=== PATIENT | female | born 1965 | race Hispanic/Latino ===

== ENCOUNTER 2022-07-10 14:30 | Outpatient (RCR) | payer OTHER, SELFPAY ==
--- NOTE | 2022-04-12 20:00 | PT.OIE ---
Current Diagnoses Other muscle spasm (04/12/22) Stress incontinence (female) (male) (04/12/22) Past Medical History (Last Reviewed 12/12/21 @ 08:32 by Joaquina Payton MD) Vaginal delivery Visit Care Team Role Provider Type Champ Ni MD Attending Provider Physician Family Provider Primary Care Provider Referring Provider Specialty: TAKE OUT WAITER/WAITRESS Address: [address] [place] [address], [address], [place], [address] Email: [email or web address] Physical Therapy Initial Evaluation PT-OP-A Visit Information Start: 04/03/22 15:03 Freq: Status: Active Protocol: Document 04/12/22 13:00 AMB (Rec: 04/12/22 13:17 AMB [id number]) Out-Patient Physical Therapy Visit Information Visit Information Visit Type Initial Evaluation Visit Start Time 13:00 Visit Stop Time 13:45 Total Visit Minutes 45 Visit Number 1 PT-OP-B Current Condition Start: 04/03/22 15:03 Freq: Status: Active Protocol: Document 04/12/22 13:00 AMB (Rec: 04/12/22 13:17 AMB [id number]) Current Condition History of Current Condition Onset Date 1 year Current Complaints pelvic pain, CINDI History of Current Condition Weak bladder if running and bladder is full then could have a pretty large leak. Painful intercourse- stinging for past 6 months. Running, hiking, biking seem to increase pain. Is using estradiol cream which is helping. 2 vaginal deliveries denies instrument assistance, noticing leaking afterward Post menopausal 5 years, leaking for quite a few years, pain has been about a year. Treatment Goals Patient/Caregiver Goals Stop pain/leaking Prior Functional Status Baseline Function- ADL's Independent Baseline Function- Mobility Independent Current Functional Impairments (Reported) Functional Limitations- ADL's leaking with running, pain with intercourse PT-OP-C Subjective Start: 04/03/22 15:03 Freq: Status: Active Protocol: Document 04/12/22 13:00 AMB (Rec: 04/12/22 15:55 AMB [id number]) Patient Questionnaires Pelvic Pain and Urgency/Frequency Patient Symptom Scale Pelvic Pain Score 11 PT-OP-I Pelvic Floor Start: 04/03/22 15:03 Freq: Status: Active Protocol: Document 04/12/22 13:00 AMB (Rec: 04/12/22 15:55 AMB [id number]) Pelvic Floor Assessment Urine Pelvic Floor Surgery No Urinary Symptoms Prolapse,Pain Leakage Size Medium Leakage Cause Cough,Exercise Other Leakage Causes laughing Voiding Frequency 5x/day Nocturia 1 Urine Pad Type Panty Liner Bowel Other Bowel Symptoms previous history of constipation Prolapse Cystocele Grade 2 Contraction Ability Voluntary Contraction Weak Voluntary Relaxation Weak Manual Muscle Testing Left 1 Manual Muscle Testing Right 1 Manual Muscle Testing Anterior 1 Manual Muscle Testing Posterior 2 Muscle Endurance (Seconds) 1 Number of Quick Contractions In 10 2 Seconds Comments Pelvic Floor Comments Mild tenderness at levator bilaterally PT-OP-T Assessment and Plan Start: 04/03/22 15:03 Freq: Status: Active Protocol: Document 04/12/22 13:00 AMB (Rec: 04/13/22 10:30 AMB [id number]) Physical Therapy Assessment Rehab Potential Rehabilitation Potential Good Evaluation Complexity Number of Personal Factors/Comorbidities 0 Number of Body Systems Impaired 1-2 Clinical Presentation at Evaluation Stable Impairments Impairments Pain,Strength Goals 2 Impairment Pain Short Term Goal (STG) Linda will be independent with using a pelvic wand to reduce pelvic floor tension. STG Duration 4 weeks Internal Carver Goal (LTG) Linda will engage in the intercourse of her choice without an increase in pain. LTG Duration 8 weeks One Impairment Continence Short Term Goal (STG) Linda will engage her pelvic floor muscles for 10 seconds to show improved strength. STG Duration 4 weeks Internal Carver Goal (LTG) Linda will run for 1 mile without urinary leakage. LTG Duration 8 weeks Assessment Summary Assessment Linda attends physical therapy with a burning sensation with intercourse for the past 6 months and CINDI with running/ extended laughing for multiple years. She presented with tenderness and spasm at bilateral levator ani, and signficant weakness of the entire pelvic floor. She will benefit from first stretching and manual therapy of the pelvic floor, and then progressive strengthening. Physical Therapy Plan Frequency and Duration Frequency of Treatment 1x/Week Duration of Treatment 10 weeks Plan of Care Start Date 04/12/22 Plan of Care End Date 06/21/22 Therapeutic Interventions Therapeutic Interventions Home Exercise Program,Manual Therapy,Neuromuscular Re- education,Self-Care/Home Management,Soft Tissue Mobilization,Therapeutic Activities,Therapeutic Exercises Modalities Biofeedback,Cold Pack/Ice Massage,Electric Stimulation, Hot Packs Next Visit Focus/Plan Next Note Type Treatment Note Next Visit Plan biofeedback, stretching for pelvic floor, progress HEP for strengthening as tolerated
--- NOTE | 2022-04-12 20:02 | PT.OPPOC ---
Physical, Occupational & Speech Therapy At Current Diagnoses Other muscle spasm (04/12/22) Stress incontinence (female) (male) (04/12/22) Visit Care Team Role Provider Type Champ Ni MD Attending Provider Physician Family Provider Primary Care Provider Referring Provider Specialty: CAKE KNOCKER Address: [address] [place] [address], [address], [place], [address] Email: [email or web address] Plan Of Care PT-OP-T Assessment and Plan Start: 04/03/22 15:03 Freq: Status: Active Protocol: Document 04/12/22 13:00 AMB (Rec: 04/13/22 10:30 AMB [id number]) Physical Therapy Assessment Rehab Potential Rehabilitation Potential Good Evaluation Complexity Number of Personal Factors/Comorbidities 0 Number of Body Systems Impaired 1-2 Clinical Presentation at Evaluation Stable Impairments Impairments Pain,Strength Goals 2 Impairment Pain Short Term Goal (STG) Linda will be independent with using a pelvic wand to reduce pelvic floor tension. STG Duration 4 weeks Yarn Man Goal (LTG) Linda will engage in the intercourse of her choice without an increase in pain. LTG Duration 8 weeks One Impairment Continence Short Term Goal (STG) Linda will engage her pelvic floor muscles for 10 seconds to show improved strength. STG Duration 4 weeks Snf Goal (LTG) Linda will run for 1 mile without urinary leakage. LTG Duration 8 weeks Assessment Summary Assessment Linda attends physical therapy with a burning sensation with intercourse for the past 6 months and CINDI with running/ extended laughing for multiple years. She presented with tenderness and spasm at bilateral levator ani, and significant weakness of the entire pelvic floor. She will benefit from first stretching and manual therapy of the pelvic floor, and then progressive strengthening. Physical Therapy Plan Frequency and Duration Frequency of Treatment 1x/Week Duration of Treatment 10 weeks Plan of Care Start Date 04/12/22 Plan of Care End Date 06/21/22 Therapeutic Interventions Therapeutic Interventions Home Exercise Program,Manual Therapy,Neuromuscular Re- education,Self-Care/Home Management,Soft Tissue Mobilization,Therapeutic Activities,Therapeutic Exercises Modalities Biofeedback,Cold Pack/Ice Massage,Electric Stimulation, Hot Packs Next Visit Focus/Plan Next Note Type Treatment Note Next Visit Plan biofeedback, stretching for pelvic floor, progress HEP for strengthening as tolerated Plan of Care Dates Plan of Care Start Date 04/12/22 Plan of Care End Date 06/21/22 Electronically Signed by: May Gutiérrez, PT 04/17/222001 If you are in agreement with this Plan of Care, please return a signed and dated copy. I have reviewed this Plan of Care and certify that the skilled therapy services above are required to meet the patient?s needs. Physician Signature Date Printed Name and Credentials Clinical Instructor Signature Printed Name and Credentials
--- NOTE | 2022-04-18 20:47 | PT.OTN ---
Current Diagnoses Other muscle spasm (04/18/22) Stress incontinence (female) (male) (04/18/22) Physical Therapy Treatment Note PT-OP-A Visit Information Start: 04/03/22 15:03 Freq: Status: Active Protocol: Document 04/18/22 14:38 AMB (Rec: 04/18/22 15:07 AMB [id number]) Out-Patient Physical Therapy Visit Information Visit Information Visit Type Treatment Note Visit Start Time 14:30 Visit Stop Time 15:15 Total Visit Minutes 45 Visit Number 2 PT-OP-B Current Condition Start: 04/03/22 15:03 Freq: Status: Active Protocol: Document 04/12/22 13:00 AMB (Rec: 04/12/22 13:17 AMB [id number]) Current Condition History of Current Condition Onset Date 1 year Current Complaints pelvic pain, CINDI History of Current Condition Weak bladder if running and bladder is full then could have a pretty large leak. Painful intercourse- stinging for past 6 months. Running, hiking, biking seem to increase pain. Is using estradiol cream which is helping. 2 vaginal deliveries denies instrument assistance, noticing leaking afterward Post menopausal 5 years, leaking for quite a few years, pain has been about a year. Treatment Goals Patient/Caregiver Goals Stop pain/leaking Prior Functional Status Baseline Function- ADL's Independent Baseline Function- Mobility Independent Current Functional Impairments (Reported) Functional Limitations- ADL's leaking with running, pain with intercourse PT-OP-C Subjective Start: 04/03/22 15:03 Freq: Status: Active Protocol: Document 04/18/22 14:38 AMB (Rec: 04/18/22 15:07 AMB [id number]) OP-PT Subjective Patient Comments Patient Comments soreness and stinging was gone most recently, and now coming back a little. Did go on hike and a kayak on Saturday, but wasn't really as sore. PT-OP-I Pelvic Floor Start: 04/03/22 15:03 Freq: Status: Active Protocol: Document 04/12/22 13:00 AMB (Rec: 04/12/22 15:55 AMB [id number]) Pelvic Floor Assessment Urine Pelvic Floor Surgery No Urinary Symptoms Prolapse,Pain Leakage Size Medium Leakage Cause Cough,Exercise Other Leakage Causes laughing Voiding Frequency 5x/day Nocturia 1 Urine Pad Type Panty Liner Bowel Other Bowel Symptoms previous history of constipation Prolapse Cystocele Grade 2 Contraction Ability Voluntary Contraction Weak Voluntary Relaxation Weak Manual Muscle Testing Left 1 Manual Muscle Testing Right 1 Manual Muscle Testing Anterior 1 Manual Muscle Testing Posterior 2 Muscle Endurance (Seconds) 1 Number of Quick Contractions In 10 2 Seconds Comments Pelvic Floor Comments Mild tenderness at levator bilaterally PT-OP-Q Treatments Start: 04/03/22 15:03 Freq: Status: Active Protocol: Document 04/18/22 14:38 AMB (Rec: 04/18/22 15:07 AMB [id number]) Therapeutic Exercises Supine Exercises piriformis stretch Reps/Minutes 30x2 DKTC Reps/Minutes 30x2 Neuro Re-Education Treatment Other Activities sEMG Reps/Duration 30 min Comments Beginning 2.5 baseline, but then after contracitng had more difficulty getting back down to baseline, more in 3-4 range. Maximum variable quick flicks in the 5 range but then was able to get resting down close to 0. PT-OP-T Assessment and Plan Start: 04/03/22 15:03 Freq: Status: Active Protocol: Document 04/18/22 14:38 AMB (Rec: 04/18/22 15:07 AMB [id number]) Physical Therapy Assessment Goals 2 Impairment Pain Short Term Goal (STG) Linda will be independent with using a pelvic wand to reduce pelvic floor tension. STG Duration 4 weeks Jail Goal (LTG) Linda will engage in the intercourse of her choice without an increase in pain. LTG Duration 8 weeks One Impairment Continence Short Term Goal (STG) Linda will engage her pelvic floor muscles for 10 seconds to show improved strength. STG Duration 4 weeks Mold Filler And Drainer Goal (LTG) Linda will run for 1 mile without urinary leakage. LTG Duration 8 weeks Assessment Summary Assessment Linda had a difficult time with consistency with sEMG, she did show fatigue towards the end. In the middle, she had a difficult time relaxing back down to her baseline, but improved with this with repetition. Physical Therapy Plan Next Visit Focus/Plan Next Note Type Treatment Note Next Visit Plan biofeedback, stretching for pelvic floor, progress HEP for strengthening as tolerated
--- NOTE | 2022-04-25 14:48 | PT.OTN ---
Current Diagnoses Other muscle spasm (04/25/22) Stress incontinence (female) (male) (04/25/22) Physical Therapy Treatment Note PT-OP-A Visit Information Start: 04/03/22 15:03 Freq: Status: Active Protocol: Document 04/25/22 13:49 AMB (Rec: 04/25/22 14:43 AMB [id number]) Out-Patient Physical Therapy Visit Information Visit Information Visit Type Treatment Note Visit Start Time 13:45 Visit Stop Time 14:30 Total Visit Minutes 45 Visit Number 3 PT-OP-B Current Condition Start: 04/03/22 15:03 Freq: Status: Active Protocol: Document 04/12/22 13:00 AMB (Rec: 04/12/22 13:17 AMB [id number]) Current Condition History of Current Condition Onset Date 1 year Current Complaints pelvic pain, CINDI History of Current Condition Weak bladder if running and bladder is full then could have a pretty large leak. Painful intercourse- stinging for past 6 months. Running, hiking, biking seem to increase pain. Is using estradiol cream which is helping. 2 vaginal deliveries denies instrument assistance, noticing leaking afterward Post menopausal 5 years, leaking for quite a few years, pain has been about a year. Treatment Goals Patient/Caregiver Goals Stop pain/leaking Prior Functional Status Baseline Function- ADL's Independent Baseline Function- Mobility Independent Current Functional Impairments (Reported) Functional Limitations- ADL's leaking with running, pain with intercourse PT-OP-C Subjective Start: 04/03/22 15:03 Freq: Status: Active Protocol: Document 04/25/22 13:49 AMB (Rec: 04/25/22 14:43 AMB [id number]) OP-PT Subjective Patient Comments Patient Comments Challenging to get exercises going. Did go on a bike ride 12 miles no increased soreness with biking. PT-OP-I Pelvic Floor Start: 04/03/22 15:03 Freq: Status: Active Protocol: Document 04/12/22 13:00 AMB (Rec: 04/12/22 15:55 AMB [id number]) Pelvic Floor Assessment Urine Pelvic Floor Surgery No Urinary Symptoms Prolapse,Pain Leakage Size Medium Leakage Cause Cough,Exercise Other Leakage Causes laughing Voiding Frequency 5x/day Nocturia 1 Urine Pad Type Panty Liner Bowel Other Bowel Symptoms previous history of constipation Prolapse Cystocele Grade 2 Contraction Ability Voluntary Contraction Weak Voluntary Relaxation Weak Manual Muscle Testing Left 1 Manual Muscle Testing Right 1 Manual Muscle Testing Anterior 1 Manual Muscle Testing Posterior 2 Muscle Endurance (Seconds) 1 Number of Quick Contractions In 10 2 Seconds Comments Pelvic Floor Comments Mild tenderness at levator bilaterally PT-OP-Q Treatments Start: 04/03/22 15:03 Freq: Status: Active Protocol: Document 04/25/22 13:49 AMB (Rec: 04/25/22 14:43 AMB [id number]) Therapeutic Exercises Supine Exercises piriformis stretch Reps/Minutes 30x2 Manual Therapy Treatment Other Other Manual Treatments Instruction in dilator usage mostly focusing on posterior musculature. PT-OP-T Assessment and Plan Start: 04/03/22 15:03 Freq: Status: Active Protocol: Document 04/25/22 13:49 AMB (Rec: 04/25/22 14:43 AMB [id number]) Physical Therapy Assessment Goals 2 Impairment Pain Short Term Goal (STG) Linda will be independent with using a pelvic wand to reduce pelvic floor tension. STG Duration 4 weeks Retirement Goal (LTG) Linda will engage in the intercourse of her choice without an increase in pain. LTG Duration 8 weeks One Impairment Continence Short Term Goal (STG) Linda will engage her pelvic floor muscles for 10 seconds to show improved strength. STG Duration 4 weeks Program Director Air Talent Goal (LTG) Linda will run for 1 mile without urinary leakage. LTG Duration 8 weeks Assessment Summary Assessment In seated does have some sorness and stinging. Is not doing estradiol 2x/week, more a couple times a month. Tolerated dilator did have some soreness and stretching but not severe, vended small dilator. Physical Therapy Plan Next Visit Focus/Plan Next Note Type Treatment Note Next Visit Plan biofeedback, stretching for pelvic floor, progress HEP for strengthening as tolerated
--- NOTE | 2022-05-04 15:18 | PT.OTN ---
Current Diagnoses Other muscle spasm (05/08/22) Stress incontinence (female) (male) (05/08/22) Physical Therapy Treatment Note PT-OP-A Visit Information Start: 04/03/22 15:03 Freq: Status: Active Protocol: Document 05/04/22 14:39 AMB (Rec: 05/04/22 15:26 AMB [id number]) Out-Patient Physical Therapy Visit Information Visit Information Visit Type Treatment Note Visit Start Time 14:30 Visit Stop Time 15:15 Total Visit Minutes 45 Visit Number 4 PT-OP-B Current Condition Start: 04/03/22 15:03 Freq: Status: Active Protocol: Document 04/12/22 13:00 AMB (Rec: 04/12/22 13:17 AMB [id number]) Current Condition History of Current Condition Onset Date 1 year Current Complaints pelvic pain, CINDI History of Current Condition Weak bladder if running and bladder is full then could have a pretty large leak. Painful intercourse- stinging for past 6 months. Running, hiking, biking seem to increase pain. Is using estradiol cream which is helping. 2 vaginal deliveries denies instrument assistance, noticing leaking afterward Post menopausal 5 years, leaking for quite a few years, pain has been about a year. Treatment Goals Patient/Caregiver Goals Stop pain/leaking Prior Functional Status Baseline Function- ADL's Independent Baseline Function- Mobility Independent Current Functional Impairments (Reported) Functional Limitations- ADL's leaking with running, pain with intercourse PT-OP-C Subjective Start: 04/03/22 15:03 Freq: Status: Active Protocol: Document 05/04/22 14:39 AMB (Rec: 05/04/22 15:26 AMB [id number]) OP-PT Subjective Patient Comments Patient Comments Hasn't really tried the dilator much yet. Patient Reported Progress Same PT-OP-I Pelvic Floor Start: 04/03/22 15:03 Freq: Status: Active Protocol: Document 04/12/22 13:00 AMB (Rec: 04/12/22 15:55 AMB [id number]) Pelvic Floor Assessment Urine Pelvic Floor Surgery No Urinary Symptoms Prolapse,Pain Leakage Size Medium Leakage Cause Cough,Exercise Other Leakage Causes laughing Voiding Frequency 5x/day Nocturia 1 Urine Pad Type Panty Liner Bowel Other Bowel Symptoms previous history of constipation Prolapse Cystocele Grade 2 Contraction Ability Voluntary Contraction Weak Voluntary Relaxation Weak Manual Muscle Testing Left 1 Manual Muscle Testing Right 1 Manual Muscle Testing Anterior 1 Manual Muscle Testing Posterior 2 Muscle Endurance (Seconds) 1 Number of Quick Contractions In 10 2 Seconds Comments Pelvic Floor Comments Mild tenderness at levator bilaterally PT-OP-Q Treatments Start: 04/03/22 15:03 Freq: Status: Active Protocol: Document 05/04/22 15:16 AMB (Rec: 05/08/22 15:18 AMB [id number]) Manual Therapy Treatment Soft Tissue Mobilization 1 Body Location internal pelvic floor Mobilization Type Myofascial Release,Sustained Pressure,Trigger Point Release Comments bilateral levator PT-OP-T Assessment and Plan Start: 04/03/22 15:03 Freq: Status: Active Protocol: Document 05/04/22 14:39 AMB (Rec: 05/04/22 15:26 AMB [id number]) Physical Therapy Assessment Goals 2 Impairment Pain Short Term Goal (STG) Linda will be independent with using a pelvic wand to reduce pelvic floor tension. STG Duration 4 weeks Human Resources Executive Goal (LTG) Linda will engage in the intercourse of her choice without an increase in pain. LTG Duration 8 weeks One Impairment Continence Short Term Goal (STG) Linda will engage her pelvic floor muscles for 10 seconds to show improved strength. STG Duration 4 weeks Human Resources Executive Goal (LTG) Linda will run for 1 mile without urinary leakage. LTG Duration 8 weeks Assessment Summary Assessment Not using lubricant with intercourse, but thinks dryness is better with estradiol. Would encourage continued stretching, dilator usage, was tender throughout manual therapy. Physical Therapy Plan Frequency and Duration Frequency of Treatment 1x/Week Duration of Treatment 10 weeks Plan of Care Start Date 04/12/22 Plan of Care End Date 06/21/22 Next Visit Focus/Plan Next Note Type Treatment Note Next Visit Plan biofeedback, stretching for pelvic floor, progress HEP for strengthening as tolerated
--- NOTE | 2022-05-08 15:26 | PT.OTN ---
Current Diagnoses Other muscle spasm (05/08/22) Stress incontinence (female) (male) (05/08/22) Physical Therapy Treatment Note PT-OP-A Visit Information Start: 04/03/22 15:03 Freq: Status: Active Protocol: Document 05/08/22 14:30 AMB (Rec: 05/08/22 15:26 AMB [id number]) Out-Patient Physical Therapy Visit Information Visit Information Visit Type Treatment Note Visit Start Time 14:30 Visit Stop Time 15:15 Total Visit Minutes 45 Visit Number 5 PT-OP-B Current Condition Start: 04/03/22 15:03 Freq: Status: Active Protocol: Document 04/12/22 13:00 AMB (Rec: 04/12/22 13:17 AMB [id number]) Current Condition History of Current Condition Onset Date 1 year Current Complaints pelvic pain, CINDI History of Current Condition Weak bladder if running and bladder is full then could have a pretty large leak. Painful intercourse- stinging for past 6 months. Running, hiking, biking seem to increase pain. Is using estradiol cream which is helping. 2 vaginal deliveries denies instrument assistance, noticing leaking afterward Post menopausal 5 years, leaking for quite a few years, pain has been about a year. Treatment Goals Patient/Caregiver Goals Stop pain/leaking Prior Functional Status Baseline Function- ADL's Independent Baseline Function- Mobility Independent Current Functional Impairments (Reported) Functional Limitations- ADL's leaking with running, pain with intercourse PT-OP-C Subjective Start: 04/03/22 15:03 Freq: Status: Active Protocol: Document 05/08/22 14:30 AMB (Rec: 05/08/22 15:26 AMB [id number]) OP-PT Subjective Patient Comments Patient Comments Pt didn't do much exercise this weekend, was busy biking in [place], feels like stinging is marginally better. PT-OP-I Pelvic Floor Start: 04/03/22 15:03 Freq: Status: Active Protocol: Document 04/12/22 13:00 AMB (Rec: 04/12/22 15:55 AMB [id number]) Pelvic Floor Assessment Urine Pelvic Floor Surgery No Urinary Symptoms Prolapse,Pain Leakage Size Medium Leakage Cause Cough,Exercise Other Leakage Causes laughing Voiding Frequency 5x/day Nocturia 1 Urine Pad Type Panty Liner Bowel Other Bowel Symptoms previous history of constipation Prolapse Cystocele Grade 2 Contraction Ability Voluntary Contraction Weak Voluntary Relaxation Weak Manual Muscle Testing Left 1 Manual Muscle Testing Right 1 Manual Muscle Testing Anterior 1 Manual Muscle Testing Posterior 2 Muscle Endurance (Seconds) 1 Number of Quick Contractions In 10 2 Seconds Comments Pelvic Floor Comments Mild tenderness at levator bilaterally PT-OP-Q Treatments Start: 04/03/22 15:03 Freq: Status: Active Protocol: Document 05/08/22 14:30 AMB (Rec: 05/08/22 15:26 AMB [id number]) Therapeutic Exercises Supine Exercises piriformis stretch Reps/Minutes 30x2 DKTC Reps/Minutes 30x2 Manual Therapy Treatment Soft Tissue Mobilization 1 Body Location internal pelvic floor Mobilization Type Myofascial Release,Sustained Pressure,Trigger Point Release Comments bilateral levator PT-OP-T Assessment and Plan Start: 04/03/22 15:03 Freq: Status: Active Protocol: Document 05/08/22 14:30 AMB (Rec: 05/08/22 15:26 AMB [id number]) Physical Therapy Assessment Goals 2 Impairment Pain Short Term Goal (STG) Linda will be independent with using a pelvic wand to reduce pelvic floor tension. STG Duration 4 weeks Film Numberer Goal (LTG) Linda will engage in the intercourse of her choice without an increase in pain. LTG Duration 8 weeks One Impairment Continence Short Term Goal (STG) Linda will engage her pelvic floor muscles for 10 seconds to show improved strength. STG Duration 4 weeks Film Numberer Goal (LTG) Linda will run for 1 mile without urinary leakage. LTG Duration 8 weeks Assessment Summary Assessment Linda has some mild tenderness with internal work, but no severe tightness, no reproduction of stinging sensation, again encouraged lubrication and stretching. Physical Therapy Plan Next Visit Focus/Plan Next Note Type Treatment Note Next Visit Plan biofeedback, stretching for pelvic floor, progress HEP for strengthening as tolerated
--- NOTE | 2022-06-11 21:00 | PT.OTN ---
Current Diagnoses Other muscle spasm (06/11/22) Stress incontinence (female) (male) (06/11/22) Physical Therapy Treatment Note PT-OP-A Visit Information Start: 04/03/22 15:03 Freq: Status: Active Protocol: Document 06/11/22 08:18 AMB (Rec: 06/11/22 09:00 AMB [id number]) Out-Patient Physical Therapy Visit Information Visit Information Visit Type Treatment Note Visit Start Time 08:15 Visit Stop Time 09:00 Total Visit Minutes 45 Visit Number 6 PT-OP-B Current Condition Start: 04/03/22 15:03 Freq: Status: Active Protocol: Document 04/12/22 13:00 AMB (Rec: 04/12/22 13:17 AMB [id number]) Current Condition History of Current Condition Onset Date 1 year Current Complaints pelvic pain, CINDI History of Current Condition Weak bladder if running and bladder is full then could have a pretty large leak. Painful intercourse- stinging for past 6 months. Running, hiking, biking seem to increase pain. Is using estradiol cream which is helping. 2 vaginal deliveries denies instrument assistance, noticing leaking afterward Post menopausal 5 years, leaking for quite a few years, pain has been about a year. Treatment Goals Patient/Caregiver Goals Stop pain/leaking Prior Functional Status Baseline Function- ADL's Independent Baseline Function- Mobility Independent Current Functional Impairments (Reported) Functional Limitations- ADL's leaking with running, pain with intercourse PT-OP-C Subjective Start: 04/03/22 15:03 Freq: Status: Active Protocol: Document 05/08/22 14:30 AMB (Rec: 05/08/22 15:26 AMB [id number]) OP-PT Subjective Patient Comments Patient Comments Pt didn't do much exercise this weekend, was busy biking in [place], feels like stinging is marginally better. PT-OP-I Pelvic Floor Start: 04/03/22 15:03 Freq: Status: Active Protocol: Document 04/12/22 13:00 AMB (Rec: 04/12/22 15:55 AMB [id number]) Pelvic Floor Assessment Urine Pelvic Floor Surgery No Urinary Symptoms Prolapse,Pain Leakage Size Medium Leakage Cause Cough,Exercise Other Leakage Causes laughing Voiding Frequency 5x/day Nocturia 1 Urine Pad Type Panty Liner Bowel Other Bowel Symptoms previous history of constipation Prolapse Cystocele Grade 2 Contraction Ability Voluntary Contraction Weak Voluntary Relaxation Weak Manual Muscle Testing Left 1 Manual Muscle Testing Right 1 Manual Muscle Testing Anterior 1 Manual Muscle Testing Posterior 2 Muscle Endurance (Seconds) 1 Number of Quick Contractions In 10 2 Seconds Comments Pelvic Floor Comments Mild tenderness at levator bilaterally PT-OP-Q Treatments Start: 04/03/22 15:03 Freq: Status: Active Protocol: Document 06/11/22 08:15 AMB (Rec: 06/11/22 20:59 AMB [id number]) Therapeutic Exercises Other Exercises quick flick and long hold Comments making sure pt relaxes pelvic floor between each set Self-Care/Home Management Treatment Activities Self-Care/Home Management Activities Education in role of hormones (pt has been hesitant to use estrogen cream). PT-OP-T Assessment and Plan Start: 04/03/22 15:03 Freq: Status: Active Protocol: Document 06/11/22 08:18 AMB (Rec: 06/11/22 09:00 AMB [id number]) Physical Therapy Assessment Goals 2 Impairment Pain Short Term Goal (STG) Linda will be independent with using a pelvic wand to reduce pelvic floor tension. STG Duration MET Infantry Operations Specialist Goal (LTG) Linda will engage in the intercourse of her choice without an increase in pain. LTG Duration MET One Impairment Continence Short Term Goal (STG) Linda will engage her pelvic floor muscles for 10 seconds to show improved strength. STG Duration MET Infantry Operations Specialist Goal (LTG) Linda will run for 1 mile without urinary leakage. LTG Duration 8 weeks Assessment Summary Assessment Hasn't had any triggers in the last month. But also hasn't gone on a run. Is doing 20 mile bike rides and not leaking with that so is happy. Not having painful intercourse. Does have questions about the estrogen cream she is using when she sees Paver Operator. Pt feels like soreness is gone. Stinging is still there, not as bad as it was, but still there. Stinging is very apparent with sitting, biking doesn't really make it worse, has been doing exercises. Physical Therapy Plan Next Visit Focus/Plan Next Note Type Treatment Note Next Visit Plan Reduce stinging sensation
--- NOTE | 2022-07-04 15:38 | PT.OTN ---
Current Diagnoses Other muscle spasm (07/04/22) Stress incontinence (female) (male) (07/04/22) Physical Therapy Treatment Note PT-OP-A Visit Information Start: 04/03/22 15:03 Freq: Status: Active Protocol: Document 07/04/22 14:32 AMB (Rec: 07/04/22 15:38 AMB [id number]) Out-Patient Physical Therapy Visit Information Visit Information Visit Type Progress Note Visit Start Time 14:30 Visit Stop Time 15:15 Total Visit Minutes 45 Visit Number 7 PT-OP-B Current Condition Start: 04/03/22 15:03 Freq: Status: Active Protocol: Document 04/12/22 13:00 AMB (Rec: 04/12/22 13:17 AMB [id number]) Current Condition History of Current Condition Onset Date 1 year Current Complaints pelvic pain, CINDI History of Current Condition Weak bladder if running and bladder is full then could have a pretty large leak. Painful intercourse- stinging for past 6 months. Running, hiking, biking seem to increase pain. Is using estradiol cream which is helping. 2 vaginal deliveries denies instrument assistance, noticing leaking afterward Post menopausal 5 years, leaking for quite a few years, pain has been about a year. Treatment Goals Patient/Caregiver Goals Stop pain/leaking Prior Functional Status Baseline Function- ADL's Independent Baseline Function- Mobility Independent Current Functional Impairments (Reported) Functional Limitations- ADL's leaking with running, pain with intercourse PT-OP-C Subjective Start: 04/03/22 15:03 Freq: Status: Active Protocol: Document 07/04/22 14:32 AMB (Rec: 07/04/22 15:38 AMB [id number]) OP-PT Subjective Patient Comments Patient Comments Linda is continuing to notice stinging, was better in May but now continues, overall better but still worse than Sept. Not really with intercourse, but mostly with tight clothing and sitting. PT-OP-I Pelvic Floor Start: 04/03/22 15:03 Freq: Status: Active Protocol: Document 04/12/22 13:00 AMB (Rec: 04/12/22 15:55 AMB [id number]) Pelvic Floor Assessment Urine Pelvic Floor Surgery No Urinary Symptoms Prolapse,Pain Leakage Size Medium Leakage Cause Cough,Exercise Other Leakage Causes laughing Voiding Frequency 5x/day Nocturia 1 Urine Pad Type Panty Liner Bowel Other Bowel Symptoms previous history of constipation Prolapse Cystocele Grade 2 Contraction Ability Voluntary Contraction Weak Voluntary Relaxation Weak Manual Muscle Testing Left 1 Manual Muscle Testing Right 1 Manual Muscle Testing Anterior 1 Manual Muscle Testing Posterior 2 Muscle Endurance (Seconds) 1 Number of Quick Contractions In 10 2 Seconds Comments Pelvic Floor Comments Mild tenderness at levator bilaterally PT-OP-Q Treatments Start: 04/03/22 15:03 Freq: Status: Active Protocol: Document 07/04/22 14:32 AMB (Rec: 07/04/22 15:38 AMB [id number]) Manual Therapy Treatment Soft Tissue Mobilization 1 Body Location internal pelvic floor Mobilization Type Myofascial Release,Sustained Pressure,Trigger Point Release Comments bilateral levator, introitus PT-OP-T Assessment and Plan Start: 04/03/22 15:03 Freq: Status: Active Protocol: Document 07/04/22 14:32 AMB (Rec: 07/04/22 15:38 AMB [id number]) Physical Therapy Assessment Goals 2 Impairment Pain Short Term Goal (STG) Linda will be independent with using a pelvic wand to reduce pelvic floor tension. STG Duration MET Wholesale Loan Processor Goal (LTG) Linda will engage in the intercourse of her choice without an increase in pain. LTG Duration MET One Impairment Continence Short Term Goal (STG) Linda will engage her pelvic floor muscles for 10 seconds to show improved strength. STG Duration MET Fdc Goal (LTG) Linda will run for 1 mile without urinary leakage. LTG Duration 8 weeks Assessment Summary Assessment The stinging is Linda's biggest concern at this point. Sx had been improving in May, but PT was less consistent in June due to therapist schedule and so pain may have backslid a bit. Will benefit from continued more consistent PT to reduce stinging sensation with sitting, intercourse no longer problematic per pt. Physical Therapy Plan Frequency and Duration Frequency of Treatment 1x/Week Duration of treatment (weeks) 10 Plan of Care Start Date 07/04/22 Plan of Care End Date 09/12/22 Therapeutic Interventions Therapeutic Interventions Home Exercise Program,Manual Therapy,Neuromuscular Re- education,Self-Care/Home Management,Soft Tissue Mobilization,Therapeutic Activities,Therapeutic Exercises Modalities Biofeedback,Cold Pack/Ice Massage,Electric Stimulation, Hot Packs Next Visit Focus/Plan Next Note Type Treatment Note Next Visit Plan Reduce stinging sensation
--- NOTE | 2022-07-04 15:39 | PT.OPPOC ---
Physical, Occupational & Speech Therapy At [facility] Current Diagnoses Other muscle spasm (07/04/22) Stress incontinence (female) (male) (07/04/22) Visit Care Team Role Provider Type Champ Ni MD Attending Provider Physician Family Provider Primary Care Provider Referring Provider Specialty: IMPREGNATOR AND DRIER Address: [address] [place] [address], [address], [place], [address] Email: [email or web address] Plan Of Care PT-OP-T Assessment and Plan Start: 04/03/22 15:03 Freq: Status: Active Protocol: Document 07/04/22 14:32 AMB (Rec: 07/04/22 15:38 AMB [id number]) Physical Therapy Assessment Goals 2 Impairment Pain Short Term Goal (STG) Linda will be independent with using a pelvic wand to reduce pelvic floor tension. STG Duration MET Jail Goal (LTG) Linda will engage in the intercourse of her choice without an increase in pain. LTG Duration MET One Impairment Continence Short Term Goal (STG) Linda will engage her pelvic floor muscles for 10 seconds to show improved strength. STG Duration MET Sheriff Sergeant Goal (LTG) Linda will run for 1 mile without urinary leakage. LTG Duration 8 weeks Assessment Summary Assessment The stinging is Linda's biggest concern at this point. Sx had been improving in May, but PT was less consistent in June due to therapist schedule and so pain may have backslid a bit. Will benefit from continued more consistent PT to reduce stinging sensation with sitting, intercourse no longer problematic per pt. Physical Therapy Plan Frequency and Duration Frequency of Treatment 1x/Week Duration of treatment (weeks) 10 Plan of Care Start Date 07/04/22 Plan of Care End Date 09/12/22 Therapeutic Interventions Therapeutic Interventions Home Exercise Program,Manual Therapy,Neuromuscular Re- education,Self-Care/Home Management,Soft Tissue Mobilization,Therapeutic Activities,Therapeutic Exercises Modalities Biofeedback,Cold Pack/Ice Massage,Electric Stimulation, Hot Packs Next Visit Focus/Plan Next Note Type Treatment Note Next Visit Plan Reduce stinging sensation Plan of Care Dates Plan of Care Start Date 07/04/22 Plan of Care End Date 09/12/22 Electronically Signed by: May Gutiérrez PT 07/04/22 1539 If you are in agreement with this Plan of Care, please return a signed and dated copy. I have reviewed this Plan of Care and certify that the skilled therapy services above are required to meet the patient?s needs. Physician Signature Date Printed Name and Credentials Clinical Instructor Signature Printed Name and Credentials
--- NOTE | 2022-07-10 15:39 | PT.OTN ---
Current Diagnoses Other muscle spasm (07/10/22) Stress incontinence (female) (male) (07/10/22) Physical Therapy Treatment Note PT-OP-A Visit Information Start: 04/03/22 15:03 Freq: Status: Active Protocol: Document 07/10/22 14:33 AMB (Rec: 07/10/22 15:39 AMB [id number]) Out-Patient Physical Therapy Visit Information Visit Information Visit Type Treatment Note Visit Start Time 14:30 Visit Stop Time 15:15 Total Visit Minutes 45 Visit Number 8 PT-OP-B Current Condition Start: 04/03/22 15:03 Freq: Status: Active Protocol: Document 04/12/22 13:00 AMB (Rec: 04/12/22 13:17 AMB [id number]) Current Condition History of Current Condition Onset Date 1 year Current Complaints pelvic pain, CINDI History of Current Condition Weak bladder if running and bladder is full then could have a pretty large leak. Painful intercourse- stinging for past 6 months. Running, hiking, biking seem to increase pain. Is using estradiol cream which is helping. 2 vaginal deliveries denies instrument assistance, noticing leaking afterward Post menopausal 5 years, leaking for quite a few years, pain has been about a year. Treatment Goals Patient/Caregiver Goals Stop pain/leaking Prior Functional Status Baseline Function- ADL's Independent Baseline Function- Mobility Independent Current Functional Impairments (Reported) Functional Limitations- ADL's leaking with running, pain with intercourse PT-OP-C Subjective Start: 04/03/22 15:03 Freq: Status: Active Protocol: Document 07/10/22 14:33 AMB (Rec: 07/10/22 15:39 AMB [id number]) OP-PT Subjective Patient Comments Patient Comments Linda is feeling about 65% better. Feeling like that is good enough for now. Hasn't been wearing compressive clothing at that is helping. PT-OP-I Pelvic Floor Start: 04/03/22 15:03 Freq: Status: Active Protocol: Document 04/12/22 13:00 AMB (Rec: 04/12/22 15:55 AMB [id number]) Pelvic Floor Assessment Urine Pelvic Floor Surgery No Urinary Symptoms Prolapse,Pain Leakage Size Medium Leakage Cause Cough,Exercise Other Leakage Causes laughing Voiding Frequency 5x/day Nocturia 1 Urine Pad Type Panty Liner Bowel Other Bowel Symptoms previous history of constipation Prolapse Cystocele Grade 2 Contraction Ability Voluntary Contraction Weak Voluntary Relaxation Weak Manual Muscle Testing Left 1 Manual Muscle Testing Right 1 Manual Muscle Testing Anterior 1 Manual Muscle Testing Posterior 2 Muscle Endurance (Seconds) 1 Number of Quick Contractions In 10 2 Seconds Comments Pelvic Floor Comments Mild tenderness at levator bilaterally PT-OP-Q Treatments Start: 04/03/22 15:03 Freq: Status: Active Protocol: Document 07/10/22 14:33 AMB (Rec: 07/10/22 15:39 AMB [id number]) Therapeutic Exercises Supine Exercises LTR Reps/Minutes 30x2 hip flexor stretch Reps/Minutes 30x2 hamstring adductor stretch Reps/Minutes 30x2 piriformis stretch Reps/Minutes 30x2 DKTC Reps/Minutes 30x2 PT-OP-T Assessment and Plan Start: 04/03/22 15:03 Freq: Status: Active Protocol: Document 07/10/22 14:33 AMB (Rec: 07/10/22 15:39 AMB [id number]) Physical Therapy Assessment Goals 2 Impairment Pain Short Term Goal (STG) Linda will be independent with using a pelvic wand to reduce pelvic floor tension. STG Duration MET Fdc Goal (LTG) Linda will engage in the intercourse of her choice without an increase in pain. LTG Duration MET One Impairment Continence Short Term Goal (STG) Linda will engage her pelvic floor muscles for 10 seconds to show improved strength. STG Duration MET Wax Specialist Goal (LTG) Linda will run for 1 mile without urinary leakage. LTG Duration 8 weeks Assessment Summary Assessment Linda feels ready to be discharged, she's about 65% better, continues to have stinging and stress urinary incontinence with running. Physical Therapy Plan Discharge Physical Therapy Discharge Reasons Patient Request
== END 2022-07-12 12:29 | disposition home or self-care (01) ==
LOC: PHYS 14:30
PROVIDERS: Family Provider Obstetrics & Gynecology; PCP Obstetrics & Gynecology; Referring Provider Obstetrics & Gynecology; Visit Provider Obstetrics & Gynecology
DX: M62.838 Other muscle spasm (principal); N39.3 Stress incontinence (female) (male)
CPT/HCPCS: 97110; 97112; 97140; 97161; 97535

== ENCOUNTER → 2025-08-14 18:05 | Outpatient (CLI) | payer BC, SELFPAY | PROVIDERS: Family Provider Obstetrics & Gynecology; Visit Provider Registered Nurse | DX: N94.9 Unspecified condition associated with female genital organs and menstrual cycle (principal) | CPT/HCPCS: 87086 ==

== ENCOUNTER 2025-08-14 18:23 | Emergency (ER) | payer BC, SELFPAY ==
[2025-08-14] VITALS (13 sets, daily range): BP systolic 114–167; BP diastolic 64–79; PULSE 67–84; RESP 17–23; TEMP 36.1; O2SAT 97–100; BMI 22.8
[2025-08-14 19:05] LABS: Add Manual Diff / Slide Review NO; Hematocrit 42.8 % (36-46); Hemoglobin 14.6 g/dL (12.0-16.0); Lymphocytes Absolute Auto 3000 /uL (1100-4500); Mean Corpuscular HGB Conc 34.0 % (30-36); Mean Corpuscular Hemoglobin 31.4 PG (26-34); Mean Corpuscular Volume 92.3 fL (80-100); Platelet Count 361 X10^3/uL (150-400)
[2025-08-14 19:17] LABS: Alanine Aminotransferase 25 IU/L (<35); Albumin 4.5 g/dL (3.5-5.0); Albumin Globulin Ratio 1.3 (1.0-2.8); Alkaline Phosphatase 100 U/L (38-126); Blood Urea Nitrogen 15 mg/dL (7-17); Calcium 9.7 mg/dL (8.4-10.2); Carbon Dioxide 29 mmol/L (22-32); Chloride 103 mmol/L (98-107); Estimated Glomerular Filt Rate > 60 mL/min (>60); Globulin 3.4 g/dL (1.7-4.1); Glucose 91 mg/dL (70-99); HEMOLYSIS < 15 (0-50); Lipase 153 U/L (23-300); Potassium 3.9 mmol/L (3.4-5.1); Sodium 138 mmol/L (137-145); Total Protein 7.9 g/dL (6.3-8.2)
--- NOTE | 2025-08-14 20:31 | EKG_ITS ---
[address] [address] Test Date: 2025-08-14 Pat Name: Linda Snyder Department: Room: Gender: Female Manganese Breaker: JOHN : 1965 Requested By: Order Number: [id number] Reading MD: Liang Jackman MD Measurements Intervals [place] Rate: 75 P: 76 OR: 128 QRS: 35 QRSD: 76 T: 36 QT: 378 QTc: 422 Interpretive Statements Normal sinus rhythm Electronically Signed On 08-15-2025 8:09:16 PST by Liang Jackman MD
--- NOTE | 2025-08-14 23:03 | ED.GENADULT ---
HPI - General Adult General Chief complaint: Abdominal Pain Stated complaint: Pain on Rt side lower abd; Sent from [facility] Time Seen by Provider: 08/14/25 20:13 Source: patient Mode of arrival: Ambulatory History of Present Illness HPI narrative: 59-year-old female complains of nontraumatic right lower quadrant discomfort since this morning, denies painful or frequent urination. No prior abdominopelvic surgeries, might have had a previous kidney stone, might have had ovarian cyst in the past, no operative interventions. She has not feel feverish. No cough chest pain shortness of breath. Denies flank pain. Has some nausea and vomiting, had one loose stool today, no black or red stools, no mucoid stools. She has not recently been exposed to antibiotics. No travel or camping. Household exposure close context persons with similar symptoms. No history of Crohn's disease or inflammatory bowel disease. Related Data Home Medications ?Medication ?Instructions ?Recorded ?Confirmed albuterol sulfate 90 mcg/actuation 2 puff inhalation Q6H PRN wheezing 04/12/25 08/14/25 aerosol inhaler amlodipine 5 mg tablet 5 mg PO DAILY 04/12/25 08/14/25 Previous Rx's ?Medication ?Instructions ?Recorded ciprofloxacin HCl 500 mg tablet 500 mg PO BID #20 tabs 08/15/25 (Cipro) metronidazole 500 mg tablet 500 mg PO TID #30 tabs 08/15/25 Allergies Allergy/AdvReac Type Severity Reaction Status Date / Time shrimp Allergy Intermediate Hives Verified 08/14/25 18:40 amoxicillin AdvReac Intermediate Rash Verified 08/14/25 18:40 Sulfa (Sulfonamide AdvReac Intermediate Dizziness Verified 08/14/25 18:40 Antibiotics) Patient History Medical History Facet arthropathy, lumbar Lumbar radiculopathy Herniated nucleus pulposus, L4-5 Vaginal delivery Social History Smoking Status: Never smoker Smoking Status: Never smoker Exam Narrative Exam Narrative: GENERAL: Well-developed patient, in mild distress. HEAD: Atraumatic. Normocephalic. EYES: Pupils equal round and reactive. Extraocular motions intact. No scleral icterus. No injection or drainage. ENT: Nose without bleeding, purulent drainage. Throat without erythema, tonsillar hypertrophy or exudate. Airway patent. NECK: Trachea midline. Non tender CARDIOVASCULAR: Regular rate and rhythm without murmurs, gallops, or rubs. RESPIRATORY: Clear to auscultation. Breath sounds equal bilaterally. No wheezes, rales, or rhonchi. GASTROINTESTINAL: Abdomen soft, non-tender, nondistended. EXTREMITIES: No edema or joint tenderness. BACK: Nontender without deformity or crepitance. No flank tenderness. NEURO: AOx3. Motor functions grossly nonfocal. SKIN: No rash or erythema of visible areas Initial Vital Signs Initial Vital Signs: Vital Signs Temperature 97.0 F L 08/14/25 18:40 Pulse Rate 80 08/14/25 18:40 Respiratory Rate 17 08/14/25 18:40 Blood Pressure 144/66 H 08/14/25 18:40 Pulse Oximetry 98 08/14/25 18:40 Oxygen Delivery Method Room Air 08/14/25 18:40 Course Orders Ordered: ED Orders 08/14/25 23:17 CT abdomen pelvis w con Stat 08/15/25 01:01 US pelvic complete Stat Discontinued Medications Hydrocodone Bitart/Acetaminophen (Hydrocodone/Acet 5/325 Prepack) 1 bottle MISC DIRECTED ONE Stop: 08/15/25 01:40 Last Admin: 08/15/25 02:48 Dose: 1 bottle Documented By: Hydromorphone HCl (Hydromorphone Hcl 0.5 Mg/0.5 Ml Syringe) 0.5 mg IV NOW ONE Stop: 08/14/25 23:17 Last Admin: 08/15/25 02:45 Dose: Not Given Documented By: Sodium Chloride (Normal Saline 0.9%) 1,000 mls @ 1,000 mls/hr IV BOLUS ONE Stop: 08/15/25 00:15 Last Infusion: 08/15/25 02:33 Dose: Infused Documented By: Admin: 08/14/25 23:45 Dose: 1,000 mls/hr Documented By: BOB Ciprofloxacin (Cipro) 400 mg in 200 mls @ 200 mls/hr IV NOW ONE Stop: 08/15/25 02:05 Last Infusion: 08/15/25 02:43 Dose: Infused Documented By: Admin: 08/15/25 01:29 Dose: 200 mls/hr Documented By: BOB Metronidazole (Metronidazole 500 Mg Tablet) 500 mg PO NOW ONE Stop: 08/15/25 01:07 Last Admin: 08/15/25 02:04 Dose: 500 mg Documented By: BOB Ondansetron HCl (Ondansetron 4 Mg/2 Ml Inj) 4 mg IV NOW PRN PRN Reason: Nausea And Vomiting Last Admin: 08/15/25 02:49 Dose: 4 mg Documented By: Ondansetron HCl (Ondansetron 4 Mg Odt) 4 mg PO NOW PRN PRN Reason: Nausea And Vomiting Ondansetron HCl (Ondansetron 4 Mg/2 Ml Inj) 4 mg IV NOW ONE Stop: 08/14/25 23:17 Last Admin: 08/15/25 02:45 Dose: Not Given Documented By: Ondansetron HCl (Ondansetron 4 Mg Odt Prepack) 1 bottle MISC DIRECTED ONE Stop: 08/15/25 01:40 Last Admin: 08/15/25 02:49 Dose: 1 bottle Documented By: Vital Signs Vital signs: Vital Signs - 8 hr 08/14/25 20:30 08/14/25 20:30 08/14/25 21:00 Pulse Rate 71 69 Respiratory Rate 19 21 Blood Pressure 137/76 Pulse Oximetry 99 98 Oxygen Delivery Method 08/14/25 21:00 08/14/25 21:30 08/14/25 21:30 Pulse Rate 69 Respiratory Rate 19 Blood Pressure 130/72 122/73 Pulse Oximetry 99 Oxygen Delivery Method 08/14/25 22:00 08/14/25 22:00 08/14/25 22:30 Pulse Rate 67 76 Respiratory Rate 20 18 Blood Pressure 123/71 Pulse Oximetry 97 99 Oxygen Delivery Method Room Air 08/14/25 22:55 08/14/25 22:55 08/14/25 23:00 Pulse Rate 70 67 Respiratory Rate 17 23 Blood Pressure 114/66 Pulse Oximetry 99 97 Oxygen Delivery Method 08/14/25 23:00 08/14/25 23:40 08/14/25 23:41 Pulse Rate 79 77 Respiratory Rate 18 17 Blood Pressure 118/67 Pulse Oximetry 97 100 Oxygen Delivery Method 08/14/25 23:41 08/15/25 00:00 08/15/25 00:00 Pulse Rate 69 Respiratory Rate 20 Blood Pressure 134/76 122/69 Pulse Oximetry 97 Oxygen Delivery Method 08/15/25 00:30 08/15/25 00:30 08/15/25 00:59 Pulse Rate 72 74 Respiratory Rate 18 18 Blood Pressure 130/65 Pulse Oximetry 95 100 Oxygen Delivery Method 08/15/25 01:00 08/15/25 01:01 08/15/25 01:30 Pulse Rate 70 Respiratory Rate 15 Blood Pressure 131/70 133/73 Pulse Oximetry 100 Oxygen Delivery Method 08/15/25 01:30 08/15/25 02:00 08/15/25 02:00 Pulse Rate 68 77 Respiratory Rate 25 H 25 H Blood Pressure 131/78 Pulse Oximetry 100 98 Oxygen Delivery Method 08/15/25 02:30 08/15/25 02:30 Pulse Rate 75 Respiratory Rate 18 Blood Pressure 148/84 H Pulse Oximetry 99 Oxygen Delivery Method Room Air Medical Decision Making Lab Data Lab results reviewed: Yes I reviewed the patient's lab results. Lab results narrative: White blood cell count 8600, hemoglobin 14.6, platelets adequate. Glucose 91. Renal function, serum CO2, electrolytes normal. Liver functions and lipase normal. Urine dip negative. 08/14/25 18:52 08/14/25 18:52 Labs: Lab Results 08/14/25 Range/Units 18:52 WBC 8.6 (4.5-11.0) X10^3/uL RBC 4.64 (4.0-5.2) X10^6/uL Hgb 14.6 (12.0-16.0) g/dL Hct 42.8 (36-46) % MCV 92.3 (80-100) fL MCH 31.4 (26-34) PG MCHC 34.0 (30-36) % RDW 13.6 (11.6-14.8) % Plt Count 361 (150-400) X10^3/uL Neut % (Auto) 55.1 (50-75) % Lymph % (Auto) 34.8 (25-40) % Daniels % (Auto) 7.2 (3-14) % Eos % (Auto) 2.2 (2-4) % Baso % (Auto) 0.7 (0-2) % Neut # (Auto) 4700 (9074-3271) /uL Lymph # (Auto) 3000 (2474-1712) /uL Daniels # (Auto) 600 (0-900) /uL Eos # (Auto) 200 (0-450) /uL Baso # (Auto) 100 (0-100) /uL Sodium 138 (137-145) mmol/L Potassium 3.9 (3.4-5.1) mmol/L Chloride 103 (98-107) mmol/L Carbon Dioxide 29 (22-32) mmol/L BUN 15 (7-17) mg/dL Creatinine 0.58 (0.52-1.04) mg/dL Estimated GFR > 60 (>60) mL/min BUN/Creatinine Ratio 25.9 H (6-22) Glucose 91 (70-99) mg/dL Calcium 9.7 (8.4-10.2) mg/dL Total Bilirubin 1.1 (0.2-1.3) mg/dL AST 27 (14-36) IU/L ALT 25 (<35) IU/L Alkaline Phosphatase 100 (38-126) U/L Total Protein 7.9 (6.3-8.2) g/dL Albumin 4.5 (3.5-5.0) g/dL Globulin 3.4 (1.7-4.1) g/dL Albumin/Globulin Ratio 1.3 (1.0-2.8) Lipase 153 (23-300) U/L Urine Dip Bedside Urine Glucose Negative Bedside Urine Bilirubin - Negative Bedside Urine Ketone - Negative Urine Specific [place] 1.015 Bedside Urine Occult Blood - Negative Bedside Urine pH 6.0 Bedside Urine Protein - Negative Bedside Urine Urobilinogen - Negative Bedside Urine Nitrite - Negative Bedside Urine Leukocytes - Negative Esterase Point of care testing: Urine Dip Bedside Urine Glucose Negative Bedside Urine Bilirubin - Negative Bedside Urine Ketone - Negative Urine Specific [place] 1.015 Bedside Urine Occult Blood - Negative Bedside Urine pH 6.0 Bedside Urine Protein - Negative Bedside Urine Urobilinogen - Negative Bedside Urine Nitrite - Negative Bedside Urine Leukocytes - Negative Esterase Imaging Data CT scan - abdomen/pelvis: Radiologist's Impression: [address] [address] [address] Scan Report Signed Patient: Linda Snyder MR#: [id number] : 1965 Acct:[id number] Age/Sex: 59 / F Date of Service: 08/14/25 Loc: ED Accession Number: [id number] Procedure: CT abdomen pelvis w con Ordering Provider: Rudy Goodman MD PROCEDURE: CT ABDOMEN PELVIS W CON INDICATIONS: RLQ abd pain, no prior appy TECHNIQUE: After the administration of intravenous contrast, axial sections acquired from the lung bases to the pubic symphysis. Coronal and sagittal reformats were performed. For radiation dose reduction, the following was used: automated exposure control, adjustment of mA and/or kV according to patient size. COMPARISON: None. FINDINGS: Image quality: Diagnostic. Lower Chest: No significant findings. ABDOMEN: Liver: No solid mass. Gallbladder: No wall thickening or calcified stones. Biliary ducts: No biliary dilation. Pancreas: Normal size and morphology without visible ductal dilatation or inflammation. Spleen: Size is within normal limits. Adrenal Glands: No adrenal nodules. Kidneys and Ureters: Normal size and symmetric enhancement. Nonobstructing left upper pole 7 mm intrarenal calculus with Hounsfield units 1240. Cortical and parapelvic cysts bilaterally. No hydronephrosis or perinephric inflammation. No hydroureter. Stomach and Bowel: Normal appendix. Stomach and small bowel loops are normal caliber. Slightly prominent, thick-walled cecal diverticulum without surrounding inflammation. Occasional sigmoid diverticulosis. The colon is otherwise normal. Peritoneum: No abnormal intraperitoneal fluid. No free air. Ventral Wall: Tiny fat containing umbilical hernia. Abdominal Nodes: No retroperitoneal or mesenteric adenopathy by size criteria. Vessels: Decompressed IVC indicating low volume. Portal vein and aorta are normal caliber. PELVIS: Pelvic Organs: CT appearance of uterus and ovaries is normal. Dominant follicle on the left ovary. Bladder: No bladder wall thickening, accounting for underdistention. Pelvic Nodes: No enlarged lymph nodes. Miscellaneous: No inguinal hernias are seen. Bones: No aggressive osseous abnormality. Degenerative disc change at L4-5 and L5-S1. IMPRESSION: Normal appendix. Thick-walled cecal diverticulum. This may indicate early or very mild cecal diverticulitis. Nonobstructing 7 mm left upper pole intrarenal calculus. Dictated by: Kimberly Cook M.D. on 08/15/2025 at 0:40 Approved by: Kimberly Cook M.D. on 08/15/2025 at 0:45 Ultrasound pelvis: Radiologist's Impression: [address] [address] Ultrasound Report Signed Patient: Linda Snyder MR#: [id number] : 1965 Acct:[id number] Age/Sex: 59 / F Date of Service: 08/15/25 Loc: ED Accession Number: [id number] Procedure: US pelvic complete Ordering Provider: Rudy Goodman MD PROCEDURE: US PELVIC COMPLETE INDICATIONS: RLQ pain, R kidney stone nonobstruct, eval for ov torsion TECHNIQUE: Real-time scanning was performed of the pelvic organs, with image documentation. Additional endovaginal scanning was necessary due to incomplete visualization of the adnexal and endometrial structures by transabdominal scanning. COMPARISON: [facility], US, US PELVIC COMPLETE, 12/12/2021, 8:31. FINDINGS: Uterus: Uterus is anteverted and normal in size at 5.8 x 2.2 x 4.4 cm. The myometrium is homogeneous. The endometrium measures 1.9 mm combined thickness. Normal vascularity. Ovaries: The right ovary was not seen. No suspicious right adnexal mass or fluid.. The left ovary measures 2.7 x 2.3 x 1 cm, with a calculated ovarian volume of 5.8 cc. There is a dominant follicle in the left ovary measuring 2.1 cm. Normal arterial ovarian flow is seen. No adnexal masses are seen. Other: No pathologic free abdominal or pelvic fluid. IMPRESSION: The right ovary was not seen. No evidence for left ovarian torsion. We strive to produce accurate, complete, and clear reports of imaging services. To assist us in improving patient care, this report was composed using standard report templates and voice recognition software. Therefore, it may contain abnormal punctuation, insertions and/or omissions. Occasional wrong-word or sound-alike substitutions may occur. Though we review the report and make efforts to correct it, we do recommend that the report be read carefully in proper context to recognize any text inaccuracies. Dictated by: Kimberly Cook M.D. on 08/15/2025 at 2:28 Approved by: Kimberly Cook M.D. on 08/15/2025 at 2:31 ECG Data Attestation: I personally reviewed and interpreted this ECG as follows: Interpretation: 2030, normal sinus rhythm with a rate of 75, no obvious ST segment elevation or depression changes. DE 128, QRS 76, QTC 422. [facility] Narrative Medical decision making narrative: 59-year-old female with right lower quadrant pain with some tenderness, no prior appy or other abdominopelvic interactions, might have had a previous ovarian cyst, might have had a previous kidney stone but unsure. No painful or frequent urination. Afebrile, sirs screen negative. DDx consider appendicitis, colitis, diverticulitis, mesenteric adenitis, constipation, bowel obstruction, ureteral stone, UTI, ovarian torsion/cyst, other. IV Dilaudid/Zofran, IV fluid bolus. Keep NPO. EKG sinus rhythm without obvious ischemic changes. Lab data: White blood cell count 8600, hemoglobin 14.6, platelets adequate. Glucose 91. Renal function, serum CO2, electrolytes normal. Liver functions and lipase normal. Urine dip negative. CT abdomen and pelvis. IMPRESSION: Normal appendix. Thick-walled cecal diverticulum. This may indicate early or very mild cecal diverticulitis. Nonobstructing 7 mm left upper pole intrarenal calculus. See radiology report. Copy of report given to patient/, with explanation, right-sided kidney stone is present but nonobstructing, no ureteral distention described, no inflammatory changes of the kidney described. Could be early cecal regional colitis. IV Ciprofloxacin, oral metronidazole. Ultrasound pelvis. No acute changes left ovary with good blood flow, right ovary not seen. See radiology report. Symptoms improved. Home pack ODT Zofran. Home pack hydrocodone/acetaminophen. Prescriptions sent for further oral antibiotics ciprofloxacin and metronidazole, 10 day course to her requested pharmacy, for treatment of presumptive early cecal colitis diagnosis at this time. History of penicillin and Bactrim allergies noted. Advised patient to avoid alcohol while taking Flagyl, to avoid nausea and vomiting induced drug interaction. Discharged home with family. Return precautions discussed. Discharge Plan Departure Patient Disposition: Home Clinical Impression: Abdominal pain, Colitis, Kidney stone Activity Restrictions/Additional Instructions: Right lower abdominal discomfort. Nursing triage note mentioned UTI symptoms, however you denied painful or frequent urination to me. Had some nausea and vomiting, and loose stool yesterday none today. No fever on triage. Some right lower quadrant abdominal discomfort on examination. No history of previous appendix surgery. CT scan abdomen and pelvis was performed, showed normal appearing appendix, some thickening of the cecum in the area that could represent early infection colitis in that section, and also showed 7 mm kidney stone within the left kidney that is not obstructing so seems less likely cause of your current discomfort. Ultrasound pelvis was not able to visualize the right ovary, left ovary without obvious cystic changes and had good blood flow. Trial of ciprofloxacin and metronidazole antibiotics, first doses in the emergency department, prescription for further course of antibiotics sent to your pharmacy, to treat for possible early right cecal area colitis, if that is the cause of your symptoms. Take antibiotics as directed. Avoid alcohol while taking metronidazole, as that combination can induce vomiting. Recheck symptoms with your regular doctor early this week. Return to this/nearest emergency department for any change worsening symptoms or concerns prior. Prescriptions: New ciprofloxacin HCl [Cipro] 500 mg tablet 500 mg PO BID Qty: 20 0RF metronidazole 500 mg tablet 500 mg PO TID Qty: 30 0RF No Action amlodipine 5 mg tablet 5 mg PO DAILY albuterol sulfate 90 mcg/actuation HFA aerosol inhaler 2 puff inhalation Q6H PRN (Reason: wheezing) Referrals: Miscellaneous,Doctor, [Primary Care Provider, Medical] Stand Alone Forms: Patient Portal/API
--- NOTE | 2025-08-14 23:17 | DI.CT.S_ITS ---
PROCEDURE: CT ABDOMEN PELVIS W CON INDICATIONS: RLQ abd pain, no prior appy TECHNIQUE: After the administration of intravenous contrast, axial sections acquired from the lung bases to the pubic symphysis. Coronal and sagittal reformats were performed. For radiation dose reduction, the following was used: automated exposure control, adjustment of mA and/or kV according to patient size. COMPARISON: None. FINDINGS: Image quality: Diagnostic. Lower Chest: No significant findings. ABDOMEN: Liver: No solid mass. Gallbladder: No wall thickening or calcified stones. Biliary ducts: No biliary dilation. Pancreas: Normal size and morphology without visible ductal dilatation or inflammation. Spleen: Size is within normal limits. Adrenal Glands: No adrenal nodules. Kidneys and Ureters: Normal size and symmetric enhancement. Nonobstructing left upper pole 7 mm intrarenal calculus with Hounsfield units 1240. Cortical and parapelvic cysts bilaterally. No hydronephrosis or perinephric inflammation. No hydroureter. Stomach and Bowel: Normal appendix. Stomach and small bowel loops are normal caliber. Slightly prominent, thick-walled cecal diverticulum without surrounding inflammation. Occasional sigmoid diverticulosis. The colon is otherwise normal. Peritoneum: No abnormal intraperitoneal fluid. No free air. Ventral Wall: Tiny fat containing umbilical hernia. Abdominal Nodes: No retroperitoneal or mesenteric adenopathy by size criteria. Vessels: Decompressed IVC indicating low volume. Portal vein and aorta are normal caliber. PELVIS: Pelvic Organs: CT appearance of uterus and ovaries is normal. Dominant follicle on the left ovary. Bladder: No bladder wall thickening, accounting for underdistention. Pelvic Nodes: No enlarged lymph nodes. Miscellaneous: No inguinal hernias are seen. Bones: No aggressive osseous abnormality. Degenerative disc change at L4-5 and L5-S1. IMPRESSION: Normal appendix. Thick-walled cecal diverticulum. This may indicate early or very mild cecal diverticulitis. Nonobstructing 7 mm left upper pole intrarenal calculus. Dictated by: Kimberly Cook M.D. on 08/15/2025 at 0:40 Approved by: Kimberly Cook M.D. on 08/15/2025 at 0:45
[2025-08-14] MEDS: SODIUM CHLORIDE 0.9% 1,000 ML 1000 ML IV (23:45)
[2025-08-15] VITALS (8 sets, daily range): BP systolic 122–148; BP diastolic 65–84; PULSE 68–77; RESP 15–25; O2SAT 95–100
--- NOTE | 2025-08-15 01:01 | DI.US.S_ITS ---
PROCEDURE: US PELVIC COMPLETE INDICATIONS: RLQ pain, R kidney stone nonobstruct, eval for ov torsion TECHNIQUE: Real-time scanning was performed of the pelvic organs, with image documentation. Additional endovaginal scanning was necessary due to incomplete visualization of the adnexal and endometrial structures by transabdominal scanning. COMPARISON: [facility], US, US PELVIC COMPLETE, 12/12/2021, 8:31. FINDINGS: Uterus: Uterus is anteverted and normal in size at 5.8 x 2.2 x 4.4 cm. The myometrium is homogeneous. The endometrium measures 1.9 mm combined thickness. Normal vascularity. Ovaries: The right ovary was not seen. No suspicious right adnexal mass or fluid.. The left ovary measures 2.7 x 2.3 x 1 cm, with a calculated ovarian volume of 5.8 cc. There is a dominant follicle in the left ovary measuring 2.1 cm. Normal arterial ovarian flow is seen. No adnexal masses are seen. Other: No pathologic free abdominal or pelvic fluid. IMPRESSION: The right ovary was not seen. No evidence for left ovarian torsion. We strive to produce accurate, complete, and clear reports of imaging services. To assist us in improving patient care, this report was composed using standard report templates and voice recognition software. Therefore, it may contain abnormal punctuation, insertions and/or omissions. Occasional wrong-word or sound-alike substitutions may occur. Though we review the report and make efforts to correct it, we do recommend that the report be read carefully in proper context to recognize any text inaccuracies. Dictated by: Kimberly Cook M.D. on 08/15/2025 at 2:28 Approved by: Kimberly Cook M.D. on 08/15/2025 at 2:31
[2025-08-15] MEDS: CIPROFLOXACIN 400 MG/200 ML PIGGYBACK 200 MG IV (01:29)
[2025-08-15] MEDS: ONDANSETRON 4 MG ODT PREPACK 1 BOTTLE MISC (02:49)
[2025-08-15] MEDS: ONDANSETRON 4 MG/2 ML INJ IV (02:49)
== END 2025-08-15 02:57 | disposition home or self-care (01) ==
PROVIDERS: Emergency Provider Emergency Medicine; Family Provider Obstetrics & Gynecology
DX: K52.89 Other specified noninfective gastroenteritis and colitis (principal); N20.0 Calculus of kidney; R10.31 Right lower quadrant pain; N94.9 Unspecified condition associated with female genital organs and menstrual cycle
CPT/HCPCS: 36415; 74177; 76830; 76856; 80053; 81003; 83690; 85025; 87086; 93005; 93976; 96365; 96375; 99284; J0744; J2405; J7030; Q9967